=== PATIENT | female | born 1950 | race Caucasian/White ===

== ENCOUNTER 2021-10-30 08:33 | Day surgery (SDC) | payer OTHER ==
[~2021-10-30] VITALS: Ht 160 cm; Wt 65.3 kg
[~2021-10-30 08:33] MED LIST: CEFAZOLIN SOD 1 GM in D5W 50 ML IV ONE
[2021-10-30] MEDS ORDERED: ONDANSETRON HCL 4 MG/2 ML VIAL IVP ONE (11:32)
[2021-10-30] MEDS ORDERED: SEVOFLURANE 15 MIN GAS INH ONE (11:32)
[2021-10-30] MEDS ORDERED: HEPARIN SODIUM, PORCINE 10,000 UNITS/ 10 ML VIAL MC ONE (11:32)
[2021-10-30] MEDS ORDERED: DEXAMETHASONE SOD PHOSPHATE 4 MG/ML VIAL IVP ONE (11:32)
[2021-10-30] MEDS ORDERED: PROPOFOL 200MG/ 20ML VIAL (DIPRIVAN) IV ONE (11:32)
[2021-10-30] MEDS ORDERED: BUPIVACAINE /EPINEPHRINE/PF 0.25% 30 ML VIAL INJ ONE (11:32)
[2021-10-30] MEDS ORDERED: LIDOCAINE 1% 10 MG/ML, 20 ML MDV IM ONE (11:32)
[2021-10-30] MEDS ORDERED: NS IRRIG SOLN 1000 ML IR ONE (11:32)
[2021-10-30] MEDS ORDERED: MIDAZOLAM HCL 5 MG/5 ML VIAL IVP ONE (11:32)
[2021-10-30] MEDS ORDERED: fentaNYL CITRATE 250 MCG/5 ML AMP IV ONE (11:32)
[2021-10-30] MEDS ORDERED: CEFAZOLIN 1 GM IVPB PREMIX 50 ML IV ONE (11:32)
[2021-10-30] MEDS ORDERED: MEPERIDINE HCL/PF 25 MG/ML DISP.SYRIN IVP PRN (12:15)
[2021-10-30] MEDS ORDERED: MIDAZOLAM HCL 2 MG/2 ML VIAL (VERSED) IVP PRN (12:15)
[2021-10-30] MEDS ORDERED: HYDROmorphone 1 MG/ML INJ. CARTRIDGE IVP PRN ×2 (12:15)
[2021-10-30] MEDS ORDERED: METOCLOPRAMIDE HCL 10 MG/2 ML VIAL IVP PRN (12:15)
[2021-10-30] MEDS ORDERED: LR 1,000 ML IV SCH (12:15)
[2021-10-30] MEDS ORDERED: LABETALOL 100 MG/ 20ML VIAL IVP PRN (12:15)
[2021-10-30] MEDS ORDERED: hydrALAZINE HCL 20 MG/ML VIAL IVP PRN (12:15)
[2021-10-30] MEDS ORDERED: HYDROcodone/ACETAMIN 5-325 MG TAB (NORCO/ VICODIN) PO PRN (12:45)
[2021-10-30] MEDS ORDERED: D5/0.45 NS 1,000 ML IV SCH (12:45)
[2021-10-30 17:05] VITALS: BP_SYST 145
== END 2021-10-30 15:10 | disposition home or self-care (01) ==
LOC: SDS 08:33 → SMU 08:47 → SDS 15:10
PROVIDERS: ATTEND Colon & Rectal Surgery
DX: C50.912 Malignant neoplasm of unspecified site of left female breast (principal); I45.10 Unspecified right bundle-branch block; Z85.43 Personal history of malignant neoplasm of ovary; Z90.710 Acquired absence of both cervix and uterus; Z90.49 Acquired absence of other specified parts of digestive tract; Z20.822 Contact with and (suspected) exposure to COVID-19
CPT/HCPCS: 36415; 36556; 71045; 71046; 77001; 87426; 93005; C1788; J0690 ×2; J1100; J1644; J2001; J2250; J2405; J2704; J3010; J3490; J7060; U0003; 76000